=== PATIENT | male | born 1970 | race Caucasian/White ===

== ENCOUNTER 2018-08-21 14:48 | Emergency (ER) | payer MEDICARE ==
[2018-08-21] MEDS ORDERED: AMPICILLIN & SULBACTAM SODIUM 3 GM VIAL IM ONE (17:05)
[2018-08-21] MEDS ORDERED: DEXAMETHASONE INJ 10 MG/ML VIAL IM ONE (17:05)
--- NOTE | 2018-08-21 17:08 | ED.PDOC ---
History of Present Illness - General Chief Complaint: Respiratory Problem Stated Complaint: Sinus infection Time Seen by Provider: 08/21/18 16:09 Source: patient - History of Present Illness Comments: ONSET TODAY, FACIAL CONGESTION. HX OF RECURRENT SINUS INFECTION. SYA HE NEEDS STEROIDS. Timing/Duration: this morning Cough Quality/Degree: no cough Possible Cause: no prior episodes Improving Factors: nothing Worsening Factors: nothing Associated Symptoms: headache, nasal congestion Home Medications: Ambulatory Orders Amoxicillin & Pot Clavulanate [Augmentin Xr 1000-62.5 mg] 1 tab PO BID #20 tab 08/21/18 predniSONE 0 mg PO DAILY #30 tab 08/21/18 Review of Systems - Review of Systems Constitutional: States: malaise EENTM: States: nose congestion Respiratory: States: no symptoms reported Cardiology: States: no symptoms reported Gastrointestinal/Abdominal: States: no symptoms reported Genitourinary: States: no symptoms reported Musculoskeletal: States: no symptoms reported Physical Exam - Physical Exam General Appearance: Alert, Well Developed, Well Groomed, Well Hydrated Eye Exam: bilateral normal ENT Exam: normal ENT inspection Neck: non-tender, full range of motion, supple, normal inspection Respiratory: chest non-tender, lungs clear, normal breath sounds, no respiratory distress Cardiovascular/Chest: normal peripheral pulses, regular rate, rhythm, no edema, no gallop Gastrointestinal/Abdominal: normal bowel sounds, non tender, soft, no organomegaly Departure - Departure Clinical Impression: Sinusitis Qualifiers: Sinusitis location: frontal Chronicity: chronic Qualified Code(s): J32.1 - Chronic frontal sinusitis Time of Disposition: 17:08 Disposition: Discharge to Home or Self Care Condition: Fair Departure Forms: ED Discharge - Pt. Copy, Patient Portal Self Enrollment Instructions: Sinusitis in Adults Referrals: Shimon Hernández MD [Primary Care Provider] - 1-2 Weeks Prescriptions: Amoxicillin & Pot Clavulanate [Augmentin Xr 1000-62.5 mg] 1 tab PO BID #20 tab predniSONE 0 mg PO DAILY #30 tab Home Medications: Ambulatory Orders Amoxicillin & Pot Clavulanate [Augmentin Xr 1000-62.5 mg] 1 tab PO BID #20 tab 08/21/18 predniSONE 0 mg PO DAILY #30 tab 08/21/18
[2018-08-21] MEDS ORDERED: LIDOCAINE 2% 5 ML VIAL ONE (17:45)
[2018-08-21 18:33] VITALS: BP 121/77; TEMP 97; O2SAT 97
== END 2018-08-21 18:33 | disposition home or self-care (01) ==
LOC: ER 14:48
DX: J32.1 Chronic frontal sinusitis (principal)
CPT/HCPCS: J0295; J1100

== ENCOUNTER 2019-03-27 10:50 | Emergency (ER) | payer MEDICARE ==
[2019-03-27] MEDS ORDERED: ONDANSETRON INJ 4 MG/2 ML VIAL IV ONE (11:12)
[2019-03-27] MEDS ORDERED: SODIUM CHLORIDE 0.9% 1000ML 1,000 ML IVS ONE (11:18)
[2019-03-27 13:32] VITALS: BP 108/67; TEMP 98; O2SAT 99
--- NOTE | 2019-03-27 13:33 | ED.PDOC ---
History of Present Illness - General Chief Complaint: General Stated Complaint: N/V, muscle cramps Time Seen by Provider: 03/27/19 11:11 Source: patient, RN notes reviewed, Vital Signs reviewed, RN/MD Exam Limitations: no limitations - History of Present Illness Initial Comments: Pt is a 48 yo M presenting with nausea and vomiting after working out in the heat yesterday. He states that he globally feels weak and has not been able to keep fluids down today. He states that he was outside playing golf and mowed his yard afterwards yesterday. He eyes any chest pain, shortness of breath, weakness in the lower extremities, or numbness in the lower extremities. He states that he feels very exhausted today. He has had issues with keeping up his by mouth intake today. Timing/Duration: 24 hours Severity: moderate Improving Factors: rest Worsening Factors: movement Associated Symptoms: nausea/vomiting Allergies/Adverse Reactions: Allergies NO KNOWN ALLERGY Allergy (Verified 08/21/18 17:24) Home Medications: Ambulatory Orders NK 03/27/19 Review of Systems - Review of Systems Constitutional: States: malaise. Denies: chills, fever EENTM: Denies: blurred vision, double vision Respiratory: Denies: cough, short of breath Cardiology: Denies: chest pain, palpitations Gastrointestinal/Abdominal: States: nausea, vomiting. Denies: constipation, diarrhea Genitourinary: Denies: dysuria, frequency Musculoskeletal: Denies: back pain, muscle pain, muscle stiffness Skin: Denies: rash Neurological: Denies: headache, numbness, weakness Past Medical History (General) - Patient Medical History Hx Stroke: No Hx Asthma: No Hx of COPD: No Hx Cardiac Disorders: No Hx Congestive Heart Failure: No Hx Diabetes: No Hx Gastroesophageal Reflux: No Hx MRSA: No Surgical History: other - Vaccination History Hx Tetanus, Diphtheria Vaccination: Yes Hx Influenza Vaccination: No Hx Pneumococcal Vaccination: Yes - Social History Hx Tobacco Use: No Hx Alcohol Use: Yes - Occasional Family Medical History - Family History Mother Family History: Unknown Living Status: Unknown Physical Exam - Physical Exam General Appearance: Other - Appears uncomfortable Eye Exam: bilateral normal Ears, Nose, Throat: hearing grossly normal, other - Dry mucous membranes Neck: full range of motion, supple, normal inspection Respiratory: lungs clear, normal breath sounds, no respiratory distress, no accessory muscle use Cardiovascular/Chest: normal peripheral pulses, regular rate, rhythm, no edema, no gallop, no JVD, no murmur Peripheral Pulses: radial,right: 2+, radial,left: 2+, posterior tibialis,right: 2+, posterior tibialis,left: 2+ Gastrointestinal/Abdominal: normal bowel sounds, non tender, soft Extremity: normal range of motion, non-tender 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 Will give IV fluids and zofran. 03/27/19 13:31 Patient feeling better. UA and CK negative. He is able to tolerate PO without difficulty. Patient will be discharged home with plans for outpatient follow-up. 03/27/19 13:43 Patient presented for evaluation of feeling unwell. EKG was not significant for ischemic changes. There was no elevation in troponin to suggest ACS. He had no focal neuro deficits on exam to suggest heat stroke. CBC was not significant for anemia or leukocytosis. CMP was not significant for hepatic or biliary derangement. CK was WNL. UA was not significant for myoglobinuria. He was PO challenged and able to tolerate water. Pt's symptoms are consistent with Dehydration and Heat Exhaustion. - EKG/XRAY/CT EKG: Sinus, no ST T wave changes Departure - Departure Clinical Impression: Dehydration after exertion Heat exhaustion Qualifiers: Encounter type: initial encounter Qualified Code(s): T67.5XXA - Heat exhaustion, unspecified, initial encounter Disposition: Discharge to Home or Self Care Condition: Good Departure Forms: ED Discharge - Pt. Copy, Patient Portal Self Enrollment Diet: resume usual diet Activity: increase activity as tolerated Referrals: Shimon Hernández MD [Primary Care Provider] - 1-2 Weeks Home Medications: Ambulatory Orders NK 03/27/19 Comments: Ramone Razo D.O. [facility] #[id number]
== END 2019-03-27 13:45 | disposition home or self-care (01) ==
LOC: ER 10:50
DX: T67.5XXA Heat exhaustion, unspecified, initial encounter (principal); E86.0 Dehydration; R11.2 Nausea with vomiting, unspecified
CPT/HCPCS: 80053; 81001; 82550; 84484; 85025; 93005; J2405; J7030